=== PATIENT | female | born 1950 | race Caucasian/White ===

== ENCOUNTER 2017-12-17 17:28 | Inpatient (IN) | payer OTHER ==
[~2017-12-17] VITALS: Ht 160 cm; Wt 65.8 kg
[2017-12-17] MEDS ORDERED: HYDROCODONE/ACETAMINOPHEN 5/325MG TABLET PO STA (18:33)
[2017-12-17] MEDS ORDERED: KETOROLAC 15MG/ML VIAL IV ONE (19:45)
[2017-12-17 19:55] LABS: BASOPHILS % 0.3 % (0.0-2.0); EOSINOPHILS % 0.6 % (0.0-5.0); HEMATOCRIT. 40.9 % (36.0-48.0); HEMOGLOBIN. 13.8 g/dL (12.0-16.0); LYMPHOCYTES % 9.4 % (20.0-50.0); MEAN CORPUSCULAR HEMOGLOBIN 29.5 pg (28.0-32.0); MEAN CORPUSCULAR VOLUME 87.3 fL (81.0-99.0); MEAN PLATELET VOLUME 9.2 fl (7.4-10.4); MONOCYTES % 7.4 % (2.0-8.0); NEUTROPHILS % 82.3 % (40.0-76.0); PLATELET 194 x1000/uL (130-400); PROTHROMBIN TIME 10.1 sec (9.1-11.1); RED BLOOD CELL COUNT 4.68 mill/uL (4.2-5.4); RED CELL DISTRIBUTION WIDTH 13.7 % (11.6-14.6)
[2017-12-17 19:59] LABS: CHLORIDE 106 mEq/L (98-107)
[2017-12-17 21:13] LABS: CLARITY URINE CLEAR (CLEAR); COLOR URINE YELLOW (YELLOW); KETONES URINE NEGATIVE (NEGATIVE); LEUKOCYTE ESTERASE URINE 1+ (NEGATIVE); NITRITE URINE NEGATIVE (NEGATIVE); OCCULT BLOOD URINE NEGATIVE (NEGATIVE); PH URINE 5.5 (4.5-8.0); PROTEIN URINE NEGATIVE (NEGATIVE); SPECIFIC GRAVITY URINE 1.013 (1.005-1.030); UROBILINOGEN URINE 0.2 E.U./dL (0.2-1.0)
[2017-12-17] MEDS ORDERED: MORPHINE SULFATE 4 MG/ML CPJ (NOT FOR IM USE) IV ONE (23:30)
[2017-12-18] MEDS ORDERED: MORPHINE SULFATE 4 MG/ML CPJ (NOT FOR IM USE) IV PRN (09:15)
[2017-12-18] MEDS ORDERED: ONDANSETRON HCL 4MG/2ML INJ IV PRN (09:15)
[2017-12-18] MEDS ORDERED: ENOXAPARIN 40MG/0.4ML SYR SUBCUT SCH (09:45)
[2017-12-18] MEDS ORDERED: LORAZEPAM 2MG/ML CPJ IV PRN (09:45)
[2017-12-18] MEDS ORDERED: ACETAMINOPHEN 325MG TABLET PO PRN (09:45)
[2017-12-18] MEDS ORDERED: OMEP20CA10 MT (10:26)
[2017-12-18 11:47] VITALS: BP 125/71
[2017-12-18 12:00] VITALS: BP_SYST 128; BP_SYST 145; BP_DIAS 60; BP_DIAS 67
[2017-12-18 12:06] LABS: BASOPHILS % 0.3 % (0.0-2.0); EOSINOPHILS % 1.5 % (0.0-5.0); HEMATOCRIT. 40.5 % (36.0-48.0); HEMOGLOBIN. 13.8 g/dL (12.0-16.0); MEAN CORPUSCULAR VOLUME 88.2 fL (81.0-99.0); MEAN PLATELET VOLUME 8.8 fl (7.4-10.4); MONOCYTES % 10.5 % (2.0-8.0); NEUTROPHILS % 55.7 % (40.0-76.0); PLATELET 182 x1000/uL (130-400); RED BLOOD CELL COUNT 4.59 mill/uL (4.2-5.4)
[2017-12-18] MEDS: HYDROMORPHONE HCL/PF 2MG/ML CPJ IV PRN ×2 (12:15→17:57)
[2017-12-18 12:39] LABS: CHLORIDE 108 mEq/L (98-107)
[2017-12-18] MEDS: ONDANSETRON HCL 4MG/2ML INJ IV PRN (15:41)
[2017-12-18 16:00] VITALS: BP_SYST 126; BP_SYST 128; BP_DIAS 66; BP_DIAS 68
[2017-12-18 20:00] VITALS: BP 131/74
[2017-12-18] MEDS ORDERED: INFLUENZA VIRUS VACCINE(AFLURIA) 0.5ML SYR IM ONE (20:00)
[2017-12-18] MEDS ORDERED: PNEUMOCOCCAL 23-VAL P-SAC VAC 0.5 ML IM ONE (20:00)
[2017-12-18] MEDS: MAGNESIUM/ALUMINUM HYDROXIDE/SIMETHICONE 30ML UDC PO PRN (20:24)
[2017-12-18] MEDS: HYDROCODONE/ACETAMINOPHEN 5/325MG TABLET PO PRN (21:14)
[2017-12-19] VITALS: BP 105/53
[2017-12-19] MEDS: HYDROMORPHONE HCL/PF 2MG/ML CPJ IV PRN ×7 (01:12→22:57)
[2017-12-19 04:00] VITALS: BP 119/61
[2017-12-19 07:11] LABS: CHLORIDE 106 mEq/L (98-107)
[2017-12-19 07:20] LABS: BASOPHILS % 0.2 % (0.0-2.0); EOSINOPHILS % 1.4 % (0.0-5.0); LYMPHOCYTES % 27.7 % (20.0-50.0); MEAN CORPUSCULAR HEMOGLOBIN 29.4 pg (28.0-32.0); MEAN CORPUSCULAR VOLUME 88.5 fL (81.0-99.0); MEAN PLATELET VOLUME 9.2 fl (7.4-10.4); MONOCYTES % 11.1 % (2.0-8.0); NEUTROPHILS % 59.6 % (40.0-76.0); PLATELET 170 x1000/uL (130-400); RED BLOOD CELL COUNT 4.41 mill/uL (4.2-5.4); RED CELL DISTRIBUTION WIDTH 13.9 % (11.6-14.6)
[2017-12-19 08:00] VITALS: BP 103/67
[2017-12-19] MEDS: ENOXAPARIN 40MG/0.4ML SYR SUBCUT SCH ×2 (09:10→09:13)
[2017-12-19 12:00] VITALS: BP 137/60
[2017-12-19 16:00] VITALS: BP 119/62
[2017-12-19] MEDS: ONDANSETRON HCL 4MG/2ML INJ IV PRN (18:31)
[2017-12-19 20:00] VITALS: BP 127/72
[2017-12-19] MEDS: MAGNESIUM/ALUMINUM HYDROXIDE/SIMETHICONE 30ML UDC PO PRN (21:00)
[2017-12-19 21:49] LABS: *AMPHETAMINES SCREEN URINE NEGATIVE (NEGATIVE); *BARBITURATES SCREEN URINE NEGATIVE (NEGATIVE); *BENZODIAZEPINES SCREEN URINE NEGATIVE (NEGATIVE); *COCAINE SCREEN URINE NEGATIVE (NEGATIVE); CANNABINOID URINE SCREEN NEGATIVE (NEGATIVE); METHADONE URINE SCREEN NEGATIVE (NEGATIVE); OPIATES URINE SCREEN PRESUMTIVE POSITIVE (NEGATIVE); PHENCYCLIDINE URINE SCREEN NEGATIVE (NEGATIVE)
[2017-12-20] VITALS: BP 110/56
[2017-12-20] MEDS: HYDROMORPHONE HCL/PF 2MG/ML CPJ IV PRN ×5 (02:30→20:01)
[2017-12-20 04:00] VITALS: BP 116/61
[2017-12-20 08:00] VITALS: BP 130/83
[2017-12-20] MEDS: ENOXAPARIN 40MG/0.4ML SYR SUBCUT SCH (10:05)
[2017-12-20 12:00] VITALS: BP 129/68
[2017-12-20] MEDS: SULFAMETHOXAZOLE/TRIMETHOPRIM 400/80MG TAB PO SCH ×2 (14:02→22:56)
[2017-12-20 16:00] VITALS: BP 131/59
[2017-12-20] MEDS: DOCUSATE SODIUM 100MG CAPSULE PO SCH (19:59)
[2017-12-20] MEDS: POLYETHYLENE GLYCOL 3350 (17GM) 1 DOSE PACK PO SCH (19:59)
[2017-12-20 20:00] VITALS: BP 132/59
[2017-12-20] MEDS: HYDROCODONE/ACETAMINOPHEN 5/325MG TABLET PO PRN (22:58)
[2017-12-20] MEDS: MAGNESIUM/ALUMINUM HYDROXIDE/SIMETHICONE 30ML UDC PO PRN (23:08)
[2017-12-21] VITALS: BP 106/55
[2017-12-21 04:00] VITALS: BP 143/75
[2017-12-21] MEDS: PANTOPRAZOLE 40MG DR TABLET PO SCH (05:20)
[2017-12-21] MEDS: HYDROCODONE/ACETAMINOPHEN 5/325MG TABLET PO PRN ×3 (05:21→23:16)
[2017-12-21 06:28] LABS: BASOPHILS % 0.5 % (0.0-2.0); EOSINOPHILS % 8.2 % (0.0-5.0); HEMATOCRIT. 38.8 % (36.0-48.0); HEMOGLOBIN. 13.7 g/dL (12.0-16.0); LYMPHOCYTES % 34.2 % (20.0-50.0); MEAN CORPUSCULAR VOLUME 87.6 fL (81.0-99.0); MEAN PLATELET VOLUME 9.5 fl (7.4-10.4); MONOCYTES % 11.4 % (2.0-8.0); NEUTROPHILS % 45.7 % (40.0-76.0); PLATELET 187 x1000/uL (130-400); RED BLOOD CELL COUNT 4.44 mill/uL (4.2-5.4); RED CELL DISTRIBUTION WIDTH 13.7 % (11.6-14.6)
[2017-12-21 08:00] VITALS: BP 135/91
[2017-12-21 08:32] LABS: CHLORIDE 99 mEq/L (98-107)
[2017-12-21] MEDS: SULFAMETHOXAZOLE/TRIMETHOPRIM 400/80MG TAB PO SCH ×2 (09:03→23:15)
[2017-12-21] MEDS: ENOXAPARIN 40MG/0.4ML SYR SUBCUT SCH (09:03)
[2017-12-21] MEDS: DOCUSATE SODIUM 100MG CAPSULE PO SCH ×2 (09:07→16:53)
[2017-12-21 12:00] VITALS: BP 118/67
[2017-12-21 16:00] VITALS: BP 115/57
[2017-12-21] MEDS ORDERED: DOCUSATE SODIUM 100MG CAPSULE PO SCH (17:00)
[2017-12-21 20:00] VITALS: BP 112/55
[2017-12-21] MEDS: POLYETHYLENE GLYCOL 3350 (17GM) 1 DOSE PACK PO SCH (21:00)
[2017-12-21] MEDS ORDERED: POLYETHYLENE GLYCOL 3350 (17GM) 1 DOSE PACK PO SCH (21:00)
[2017-12-22] VITALS: BP 118/62
[2017-12-22 04:00] VITALS: BP 114/54
[2017-12-22] MEDS: HYDROCODONE/ACETAMINOPHEN 5/325MG TABLET PO PRN ×2 (05:37→15:58)
[2017-12-22 08:00] VITALS: BP 111/84
[2017-12-22] MEDS: DOCUSATE SODIUM 100MG CAPSULE PO SCH ×2 (08:35→17:32)
[2017-12-22] MEDS: PANTOPRAZOLE 40MG DR TABLET PO SCH (08:35)
[2017-12-22] MEDS: ENOXAPARIN 40MG/0.4ML SYR SUBCUT SCH (08:35)
[2017-12-22] MEDS: SULFAMETHOXAZOLE/TRIMETHOPRIM 400/80MG TAB PO SCH ×2 (08:36→21:00)
[2017-12-22 12:00] VITALS: BP 107/69
[2017-12-22 16:00] VITALS: BP 105/66
[2017-12-22 20:00] VITALS: BP 100/52
[2017-12-22] MEDS: POLYETHYLENE GLYCOL 3350 (17GM) 1 DOSE PACK PO SCH (21:00)
[2017-12-23] VITALS: BP 113/65
[2017-12-23 04:00] VITALS: BP 99/51
[2017-12-23 06:17] LABS: BASOPHILS % 0.3 % (0.0-2.0); EOSINOPHILS % 9.8 % (0.0-5.0); HEMATOCRIT. 37.3 % (36.0-48.0); HEMOGLOBIN. 12.9 g/dL (12.0-16.0); LYMPHOCYTES % 23.9 % (20.0-50.0); MEAN CORPUSCULAR HEMOGLOBIN 29.9 pg (28.0-32.0); MEAN CORPUSCULAR VOLUME 86.8 fL (81.0-99.0); MEAN PLATELET VOLUME 9.4 fl (7.4-10.4); PLATELET 206 x1000/uL (130-400); RED CELL DISTRIBUTION WIDTH 13.7 % (11.6-14.6)
[2017-12-23 07:04] LABS: CHLORIDE 102 mEq/L (98-107)
[2017-12-23 07:16] LABS: PHOSPHORUS 3.7 mg/dL (2.5-4.9)
[2017-12-23 08:00] VITALS: BP 114/68
[2017-12-23] MEDS: DOCUSATE SODIUM 100MG CAPSULE PO SCH ×2 (09:36→17:36)
[2017-12-23] MEDS: ENOXAPARIN 40MG/0.4ML SYR SUBCUT SCH (09:36)
[2017-12-23] MEDS: SULFAMETHOXAZOLE/TRIMETHOPRIM 400/80MG TAB PO SCH ×2 (09:36→21:38)
[2017-12-23] MEDS: PANTOPRAZOLE 40MG DR TABLET PO SCH (09:41)
[2017-12-23] MEDS: HYDROCODONE/ACETAMINOPHEN 5/325MG TABLET PO PRN ×2 (11:33→20:10)
[2017-12-23 12:00] VITALS: BP 101/70
[2017-12-23 16:00] VITALS: BP 122/73
[2017-12-23 20:00] VITALS: BP 116/77
[2017-12-23] MEDS: POLYETHYLENE GLYCOL 3350 (17GM) 1 DOSE PACK PO SCH (21:39)
[2017-12-24] VITALS: BP 87/60
[2017-12-24 01:00] VITALS: BP 99/53
[2017-12-24 04:00] VITALS: BP 109/62
[2017-12-24] MEDS: PANTOPRAZOLE 40MG DR TABLET PO SCH (06:33)
[2017-12-24] MEDS: HYDROCODONE/ACETAMINOPHEN 5/325MG TABLET PO PRN ×2 (06:42→16:12)
[2017-12-24] MEDS: SULFAMETHOXAZOLE/TRIMETHOPRIM 400/80MG TAB PO SCH (08:27)
[2017-12-24] MEDS: DOCUSATE SODIUM 100MG CAPSULE PO SCH (08:27)
[2017-12-24] MEDS: ENOXAPARIN 40MG/0.4ML SYR SUBCUT SCH (08:28)
[2017-12-24 16:18] VITALS: BP 128/76
== END 2017-12-24 16:45 | DRG 552 ==
LOC: ER 17:28 → 6EST 23:53 → ENRESERV 12-18 05:21 → 5WST 12-18 12:49 → 6EST 12-21 18:19
PROVIDERS: ADMIT Internal Medicine Nephrology; ATTEND Internal Medicine Nephrology
DX: S32.10XA Unspecified fracture of sacrum, initial encounter for closed fracture (principal); S32.592A Other specified fracture of left pubis, initial encounter for closed fracture; E44.0 Moderate protein-calorie malnutrition; N39.0 Urinary tract infection, site not specified; S32.591A Other specified fracture of right pubis, initial encounter for closed fracture; R73.9 Hyperglycemia, unspecified; I10 Essential (primary) hypertension; K59.00 Constipation, unspecified; M48.07 Spinal stenosis, lumbosacral region; M47.816 Spondylosis without myelopathy or radiculopathy, lumbar region; Z68.25 Body mass index [BMI] 25.0-25.9, adult; M51.36 Other intervertebral disc degeneration, lumbar region; M19.90 Unspecified osteoarthritis, unspecified site; R74.0 Nonspecific elevation of levels of transaminase and lactic acid dehydrogenase [LDH]; V43.62XA Car passenger injured in collision with other type car in traffic accident, initial encounter; Y92.410 Unspecified street and highway as the place of occurrence of the external cause; Y99.8 Other external cause status; Y93.89 Activity, other specified
CPT/HCPCS: 36415; 71045; 72131; 72148; 72170; 74176; 80048; 80305; 83735; 84100; 84484; 90686; 90732; 92523; 93005; 96374; 96375; 97116; 97163; 97166; 97530; 99285; J1170; J1650; J1885; J2270; J2405